=== PATIENT | male | born 1965 | race American Indian/Alaskan Native ===

== ENCOUNTER 2024-07-27 12:49 | Emergency (ER) | payer OTHER ==
[~2024-07-27] VITALS: Ht 172.7 cm; Wt 106.9 kg
[2024-07-27] MEDS ORDERED: OMEPRAZOLE20 MG PO (13:25)
[2024-07-27] MEDS ORDERED: STOOL SOFTENER250 MG PO (13:25)
[2024-07-27] MEDS ORDERED: TRIMETHOPRIM/SULFAMETHOXAZOLE 1 EA TAB PO ONE (13:45)
[2024-07-27] MEDS ORDERED: clindamycin HCL 300 MG CAP PO ONE (13:45)
[2024-07-27] MEDS ORDERED: FERROUS GLUCON324 M1 PO (14:12)
[2024-07-27] MEDS ORDERED: NORVASC10 MG PO (14:13)
[2024-07-27] MEDS ORDERED: ZYRTEC10 M3 PO (14:13)
[2024-07-27] MEDS ORDERED: NAPROXEN500 MG PO (14:13)
[2024-07-27] MEDS ORDERED: VITAMIN B121000 MCG PO (14:14)
[2024-07-27] MEDS ORDERED: NASACORT10.8 ML NAS (14:14)
[2024-07-27] MEDS ORDERED: VITAMIN D325 MC2 PO (14:15)
[2024-07-27] MEDS ORDERED: CLINDAMYCIN HC150 MG PO (18:13)
[2024-07-27] MEDS ORDERED: BACTRIM DS TAB1 EACH PO (18:13)
[2024-07-27 18:28] VITALS: BP 105/78
[2024-07-27] MEDS ORDERED: IBUPROFEN 600 MG TAB PO ONE (18:30)
== END 2024-07-27 18:28 | disposition other institution, planned readmission (95) ==
LOC: ED 12:49
DX: L03.011 Cellulitis of right finger (principal); Z79.899 Other long term (current) drug therapy
CPT/HCPCS: 10060; 87070; 87075; 87205; 99283-25; A9270

== ENCOUNTER 2024-08-14 17:06 | Emergency (ER) | payer OTHER ==
[~2024-08-14] VITALS: Ht 172.7 cm; Wt 106.6 kg
[~2024-08-14 17:06] MED LIST: BACTRIM DS TAB1 EACH PO; CLINDAMYCIN HC150 MG PO; FERROUS GLUCON324 M1 PO; NAPROXEN500 MG PO; NASACORT10.8 ML NAS; NORVASC10 MG PO; OMEPRAZOLE20 MG PO; STOOL SOFTENER250 MG PO; VITAMIN B121000 MCG PO; VITAMIN D325 MC2 PO; ZYRTEC10 M3 PO
--- OUTSIDE RECORDS SUMMARY | 2024-08-14 17:13 | XMS ---
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 - 2 Visits in 30 Days CARE PROVIDERS There are no care providers on record at this time. Yonas has no Care Guidelines for this patient. Marly VISIT COUNT (12 MO.) 2 [facility] [place] [facility] TOTAL 2 NOTE: Visits indicate total known visits. ED/C VISIT TRACKING (12 MO.) 08/14/2024 17:07 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
[2024-08-15 00:45] VITALS: BP 150/95
== END 2024-08-15 00:53 | disposition home or self-care (01) ==
LOC: ED 17:06
DX: L03.011 Cellulitis of right finger (principal); K21.9 Gastro-esophageal reflux disease without esophagitis; Z79.899 Other long term (current) drug therapy
CPT/HCPCS: 99283

== ENCOUNTER 2024-12-01 11:26 | Emergency (ER) | payer OTHER ==
[~2024-12-01] VITALS: Ht 172.7 cm; Wt 107.0 kg
[2024-12-01] MEDS ORDERED: TRIMETHOPRIM/SULFAMETHOXAZOLE 1 EA TAB PO ONE (17:30)
[2024-12-01] MEDS ORDERED: BACTRIM DS TAB1 EACH PO (17:58)
[2024-12-01 18:10] VITALS: BP 150/98
== END 2024-12-01 18:10 | disposition home or self-care (01) ==
LOC: ED 11:26
DX: N48.5 Ulcer of penis (principal); K21.9 Gastro-esophageal reflux disease without esophagitis
CPT/HCPCS: 99283; A9270

== ENCOUNTER 2024-12-05 08:14 | Emergency (ER) | payer OTHER ==
[~2024-12-05] VITALS: Ht 172.7 cm; Wt 105.0 kg
--- OUTSIDE RECORDS SUMMARY | 2024-12-05 08:21 | XMS ---
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 Yonas has no Care Guidelines for this patient. Marly VISIT COUNT (12 MO.) 4 [facility] [place] [facility]. TOTAL 4 NOTE: Visits indicate total known visits. ED/[facility] VISIT TRACKING (12 MO.) 12/05/2024 08:[address] [facility] [address] [place] TYPE: Emergency COMPLAINT: - MOUTH PAIN 12/01/2024 11:28 [facility] TYPE: Emergency COMPLAINT: - WOUND CHECK DIAGNOSES: - Gastro-esophageal reflux disease without esophagitis - Ulcer of penis 08/14/2024 17:07 [facility] TYPE: Emergency COMPLAINT: - WOUND CHECK DIAGNOSES: - Cellulitis of right finger - Encounter for surgical aftercare following surgery on the skin and subcutaneous tissue - Gastro-esophageal reflux disease without esophagitis - [facility] [place] [facility] (current[facility] drug therapy 07/27/2024 12:49 [facility] [place] TYPE: Emergency COMPLAINT: - FINGER INJURY DIAGNOSES: - Cellulitis of right finger - Other [place] [facility] (current[facility] drug therapy INPATIENT VISIT TRACKING (12 MO.) No inpatient visits to display in this time frame [id number]
[2024-12-05] MEDS ORDERED: FLUCONAZOLE100 MG PO (09:14)
[2024-12-05] MEDS ORDERED: FLUCONAZOLE 200 MG TAB PO ONE (09:15)
[2024-12-05] MEDS ORDERED: KETOROLAC TROMETHAMINE 30 MG/ML VIAL IM ONE (09:15)
[2024-12-05 10:00] VITALS: BP 122/85
== END 2024-12-05 09:55 | disposition home or self-care (01) ==
LOC: ED 08:14
DX: B37.0 Candidal stomatitis (principal); F43.10 Post-traumatic stress disorder, unspecified; K21.9 Gastro-esophageal reflux disease without esophagitis; Z79.899 Other long term (current) drug therapy
CPT/HCPCS: 96372; 99284; J1885

== ENCOUNTER 2025-03-26 15:35 | Emergency (ER) | payer OTHER ==
[~2025-03-26] VITALS: Ht 172.7 cm; Wt 105.0 kg
[~2025-03-26 15:35] MED LIST changes: +FLUCONAZOLE100 MG PO
[2025-03-26] MEDS ORDERED: DULOXETINE HCL30 MG PO (15:53)
[2025-03-26] MEDS ORDERED: B-121000 MC2 PO (15:54)
[2025-03-26] MEDS ORDERED: NORVASC10 MG PO (15:54)
[2025-03-26] MEDS ORDERED: VITAMIN D325 MCG PO (15:55)
[2025-03-26] MEDS ORDERED: DOCUSATE SODIU250 MG PO (15:56)
[2025-03-26] MEDS ORDERED: FERROUS GLUCON324 M1 PO (15:56)
[2025-03-26 16:29] LABS: BASOPHILS 0.2 % (0.2-1.2); EOSINOPHILS 0.1 % (0.8-7.0); LYMPHOCYTES 5.9 % (21.8-53.1); MCH 23.5 PG (25.7-32.2); MCHC 31.4 g/dL (32.3-36.5); MCV 74.8 fL (79.0-92.2); MONOCYTES 6.4 % (5.3-12.2); NEUTROPHILS 86.7 % (34.0-67.9); RBC 4.13 M/uL (4.63-6.08)
[2025-03-26 16:42] LABS: ALT (SGPT) 14.0 U/L (14-59); AST (SGOT) 13.0 U/L (15-37); GLOMERULAR FILTRATION RATE,EST 65.0 mL/min (>60); PROTEIN, TOTAL 6.4 g/dL (6.4-8.2); UREA NITROGEN 22.0 mg/dL (7-18)
[2025-03-26] MEDS ORDERED: ACETAMINOPHEN 500 MG TAB PO ONE (16:45)
[2025-03-26 16:56] LABS: BLOOD/HGB, URINE NEGATIVE (Negative); KETONE, URINE TRACE (Negative); LEUK ESTERASE, URINE NEGATIVE (negative); NITRITE, URINE NEGATIVE (negative)
[2025-03-26 17:06] LABS: BACTERIA, URINE NONE SEEN /hpf (negative); CRYSTALS, URINE NONE SEEN (0-1+); EPITHELIAL CELLS, URINE SQUAMOUS 1+ /lpf (0-1+)
[2025-03-26 17:07] LABS: CASTS, URINE HYALINE 1+ \\lpf; REFLEX CULTURE, URINE No (No)
[2025-03-26 17:45] LABS: LACTIC ACID, BLOOD 1.1 mmol/L (0.4-2.0)
[2025-03-26] MEDS ORDERED: AMOX TR-K CLV1 EAC1 PO (18:44)
[2025-03-26 19:29] VITALS: BP 102/56
== END 2025-03-26 19:29 | disposition other institution, planned readmission (95) ==
LOC: ED 15:35
PROVIDERS: Emergency Medicine
DX: K52.9 Noninfective gastroenteritis and colitis, unspecified (principal); K21.9 Gastro-esophageal reflux disease without esophagitis; Z88.2 Allergy status to sulfonamides; Z88.1 Allergy status to other antibiotic agents; Z79.899 Other long term (current) drug therapy
CPT/HCPCS: 36415; 71045; 74177; 80053; 81001; 83605; 83690; 83735; 85025; 87040; 96365; 96375; 99284-25; A9270; J0696; J2405; Q9967

== ENCOUNTER 2025-03-30 10:03 | Emergency (ER) | payer OTHER ==
[~2025-03-30] VITALS: Ht 172.7 cm; Wt 104.0 kg
[~2025-03-30 10:03] MED LIST changes: +AMOX TR-K CLV1 EAC1 PO; +B-121000 MC2 PO; +DOCUSATE SODIU250 MG PO; +DULOXETINE HCL30 MG PO; +VITAMIN D325 MCG PO
--- OUTSIDE RECORDS SUMMARY | 2025-03-30 10:10 | XMS ---
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 Yonas has no Care Guidelines for this patient. [place] [facility] MO.) [facility] NOTE: Visits indicate total known visits. ED/C VISIT TRACKING (12 MO.) 03/30/2025 10:04 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 - Unspecified abdominal pain 12/05/2024 08:15 [facility] TYPE: Emergency COMPLAINT: - MOUTH PAIN DIAGNOSES: - Candidal stomatitis - Gastro-esophageal reflux disease without esophagitis - Other shelter (current) drug therapy - Post-traumatic stress disorder, unspecified - Unspecified lesions of oral mucosa 12/01/2024 11:28 [facility] TYPE: Emergency COMPLAINT: - WOUND CHECK DIAGNOSES: - Gastro-esophageal reflux disease without esophagitis - Ulcer of penis 08/14/2024 17:07 [facility] TYPE: Emergency COMPLAINT: - WOUND CHECK DIAGNOSES: - Cellulitis of right finger - Encounter for surgical aftercare following surgery on the skin and subcutaneous tissue - Gastro-esophageal reflux disease without esophagitis - Other shelter (current) drug therapy 07/27/2024 12:49 [facility] TYPE: Emergency COMPLAINT: - FINGER INJURY DIAGNOSES: - Cellulitis of right finger - Other shelter (current) drug therapy INPATIENT VISIT TRACKING (12 MO.) No inpatient visits to display in this time frame [id number]
[2025-03-30 10:28] LABS: BASOPHILS 0.2 % (0.2-1.2); EOSINOPHILS 0 % (0.8-7.0); LYMPHOCYTES 3.7 % (21.8-53.1); MCH 23.4 PG (25.7-32.2); MCHC 32.2 g/dL (32.3-36.5); MCV 72.6 fL (79.0-92.2); MONOCYTES 5.7 % (5.3-12.2); NEUTROPHILS 89.1 % (34.0-67.9); RBC 4.57 M/uL (4.63-6.08)
[2025-03-30] MEDS ORDERED: SODIUM CHLORIDE 0.9% 1,000 ML IV ONE (10:30)
[2025-03-30 10:48] LABS: ALT (SGPT) 27.0 U/L (14-59); AST (SGOT) 39.0 U/L (15-37); GLOMERULAR FILTRATION RATE,EST 63.0 mL/min (>60); PROTEIN, TOTAL 6.0 g/dL (6.4-8.2); UREA NITROGEN 30.0 mg/dL (7-18)
[2025-03-30 11:32] LABS: BLOOD/HGB, URINE TRACE-L (Negative); KETONE, URINE SMALL (Negative); LEUK ESTERASE, URINE NEGATIVE (negative); NITRITE, URINE NEGATIVE (negative)
[2025-03-30 11:38] LABS: CASTS, URINE HYALINE 2+ \\lpf; EPITHELIAL CELLS, URINE 0 /lpf (0-1+); REFLEX CULTURE, URINE No (No)
[2025-03-30] MEDS ORDERED: VANCOMYCIN HCL 125 MG CAP PO ONE (13:00)
[2025-03-30] MEDS ORDERED: VANCOCIN HCL125 MG PO (13:04)
[2025-03-30] MEDS ORDERED: ONDANSETRON ODT8 MG PO (13:04)
[2025-03-30 13:28] VITALS: BP 104/60
== END 2025-03-30 13:28 | disposition home or self-care (01) ==
LOC: ED 10:03
PROVIDERS: Emergency Medicine
DX: A04.72 Enterocolitis due to Clostridium difficile, not specified as recurrent (principal); K21.9 Gastro-esophageal reflux disease without esophagitis; Z88.2 Allergy status to sulfonamides; Z91.048 Other nonmedicinal substance allergy status; Z88.1 Allergy status to other antibiotic agents; Z79.899 Other long term (current) drug therapy
CPT/HCPCS: 36415; 80053; 81001; 83690; 85025; 87324; 96361; 96374; 99284-25; J2405; J7030